=== PATIENT | female | born 2005 | race Two or more races ===

== ENCOUNTER 2024-04-24 11:05 | Outpatient (CLI) | payer OTHER | END 2024-04-24 11:08 | disposition home or self-care (01) | LOC: PRENATAL 11:05 | PROVIDERS: ATTEND Obstetrics & Gynecology Maternal & Fetal Medicine | DX: O36.80X0 Pregnancy with inconclusive fetal viability, not applicable or unspecified (principal); Z36.82 Encounter for antenatal screening for nuchal translucency; Z36.9 Encounter for antenatal screening, unspecified; Z14.8 Genetic carrier of other disease; Z3A.12 12 weeks gestation of pregnancy ==

== ENCOUNTER 2024-06-09 11:01 | Outpatient (CLI) | payer OTHER | END 2024-06-09 11:02 | disposition home or self-care (01) | LOC: PRENATAL 11:01 | PROVIDERS: ATTEND Obstetrics & Gynecology Maternal & Fetal Medicine | DX: O44.00 Complete placenta previa NOS or without hemorrhage, unspecified trimester (principal); Z3A.19 19 weeks gestation of pregnancy ==

== ENCOUNTER → 2024-09-08 10:03 | Outpatient (CLI) | payer OTHER | END | disposition home or self-care (01) | LOC: PRENATAL 10:03 | PROVIDERS: ATTEND Obstetrics & Gynecology Maternal & Fetal Medicine | DX: O26.849 Uterine size-date discrepancy, unspecified trimester (principal); O36.8199 Decreased fetal movements, unspecified trimester, other fetus; O99.019 Anemia complicating pregnancy, unspecified trimester; Z3A.32 32 weeks gestation of pregnancy ==